=== PATIENT | male | born 1935 | race Caucasian/White ===

== ENCOUNTER 2021-04-07 12:03 | Outpatient (REF) | payer MEDICARE, SELFPAY ==
[2021-04-07 12:24] LABS: COVID-19 Test Negative (Negative)
== END 2021-04-07 12:04 | disposition home or self-care (01) ==
LOC: HO.HVNA 12:03
PROVIDERS: Visit Provider Internal Medicine
DX: Z20.822 Contact with and (suspected) exposure to COVID-19 (principal)
CPT/HCPCS: 36415; 87635

== ENCOUNTER 2021-05-18 14:00 | Emergency (ER) | payer MEDICARE, SELFPAY ==
--- NOTE | 2021-05-18 | ECG_ITS ---
Test Reason : chest pain Blood Pressure : / mmHG Vent. Rate : 059 BPM Atrial Rate : 059 BPM P-R Int : 188 ms QRS Dur : 084 ms QT Int : 414 ms P-R-T Axes : 063 046 072 degrees QTc Int : 409 ms Sinus bradycardia Otherwise normal ECG No previous ECGs available Referred By: Generic ED Physician Electronically Signed By:TOMMIE SAUNDERS
--- NOTE | ~2021-05-18 | CT_ITS ---
EXAMINATION: CT ABDOMEN AND PELVIS WITH CONTRAST CLINICAL INFORMATION: Trauma. COMPARISON: None TECHNIQUE: Multidetector volumetric images were obtained from the superior aspect of the liver through the pubic symphysis following administration 85 mL of Omnipaque 350 intravenous contrast. Sagittal and coronal reformatted images were obtained on the technologist's workstation. Oral contrast: No This CT examination was performed using dose optimization techniques as appropriate, variously including the following: *Automated exposure control *Adjustment of mA and/or kV according to patient size (this includes techniques or standardized protocols for targeted exams where dose is matched to indication/reason for exam; i.e. extremities or head) *Use of iterative reconstruction technique DLP: 612 mGy-cm FINDINGS: LUNG BASES: Evaluation of pulmonary nodules is limited due to motion. Asymmetric elevation of the right hemidiaphragm. There are bibasilar subsegmental atelectasis and/or peripheral parenchymal scarring. No focal consolidation or pleural effusion. The visualized cardiomediastinal silhouette is within normal limits aside from the presence of coronary calcifications. LIVER, GALLBLADDER, AND BILIARY TREE: The liver is normal in size, shape, and attenuation. No focal hepatic lesion. The gallbladder is unremarkable with no evidence of radiopaque gallstones, gallbladder wall thickening, or obvious pericholecystic inflammatory changes. The common bile duct is dilated up to approximately 1 cm without evidence of choledocholithiasis nor obstructive abnormalities. There is very mild intrahepatic biliary ductal dilatation. PANCREAS: Unremarkable. SPLEEN: Unremarkable. ADRENAL GLANDS: Unremarkable. KIDNEYS AND URETERS: There is a 0.2 cm calculus in the lower pole of the left kidney and a 0.2 cm calculus in the upper pole of the left kidney. No hydronephrosis or hydroureter. Bilateral extrarenal pelvises. There are a few too small to characterize cortical hypodensities bilaterally which statistically are likely to represent simple cysts and do not require further follow-up. There is mild bilateral perinephric fat stranding. BLADDER: Unremarkable. GASTROINTESTINAL TRACT: The stomach and the small bowel are nondilated. There are postsurgical changes at the cecal base likely from prior appendectomy. There is large amount stool burden throughout the colon without evidence of active pericolic inflammatory changes or bowel obstruction. There is questionable wall thickening of the rectum. ABDOMINAL WALL: There is an indeterminate well-defined hyperattenuating lesion in the left inguinal canal measuring up to 2.3 cm (3:84). No significant abdominal hernia. LYMPH NODES: No lymphadenopathy by size criteria. VASCULAR: Atherosclerotic disease. The abdominal aorta is of normal diameter. PELVIC VISCERA: Enlarged prostate with coarse calcifications. OSSEOUS STRUCTURES: No acute or aggressive osseous abnormalities. Significant thoracolumbar spondylosis. CT/CT abdomen pelvis w con IMPRESSION: No acute traumatic sequela. Nonobstructive left-sided calculi. Indeterminate CBD dilatation which could be related with patient's age. No definite obstructive abnormalities or choledocholithiasis are identified. If indicated, consider correlation with ERCP or MRCP. Questionable wall thickening of the rectum which could be related with under distention or mild proctocolitis in the appropriate clinical context. There is large amount of stool burden throughout the colon suggesting constipation. Indeterminate hyperattenuating lesion in the left inguinal canal which could represent loculated fluid within an inguinal hernia. Recommend clinical correlation and if needed further evaluation with a targeted ultrasound of this area. Prostatomegaly.
--- NOTE | ~2021-05-18 | CT_ITS ---
EXAMINATION: CT HEAD WITHOUT CONTRAST CLINICAL INFORMATION: Fall. COMPARISON: None TECHNIQUE: Contiguous axial imaging was performed from the skull base to vertex without intravenous administration of contrast. This CT examination was performed using dose optimization techniques as appropriate, variously including the following: *Automated exposure control *Adjustment of mA and/or kV according to patient size (this includes techniques or standardized protocols for targeted exams where dose is matched to indication/reason for exam; i.e. extremities or head) *Use of iterative reconstruction technique DLP: 760 mGy-cm FINDINGS: Large area of encephalomalacia/gliosis within the left middle cerebral artery vascular territory with associated parenchymal volume loss and ex vacuo dilatation of the left lateral ventricle. There is no evidence of acute intracranial hemorrhage or territorial infarction. No abnormal mass effect or midline shift is seen. Kilpatrick to white matter differentiation is otherwise well preserved. There is a background of moderate chronic microangiopathy and generalized cerebral volume loss. No extra-axial fluid collections are identified. The osseous structures and soft tissues are normal. The mastoid air cells and visualized portions of the paranasal sinuses are well aerated. CT/CT head/brain wo con IMPRESSION: Large chronic left MCA infarct. No acute edematous territorial infarction or intraparenchymal hemorrhage. Moderate chronic microangiopathy and generalized cerebral bolus.
--- NOTE | ~2021-05-18 | XR_ITS ---
EXAMINATION: XR RIBS, RIGHT CLINICAL INFORMATION: Pain status post fall COMPARISON: None TECHNIQUE: 4 views FINDINGS: Lungs are clear. No consolidation, pneumothorax, or pleural effusion. The cardiomediastinal silhouette and pulmonary vasculature are normal. Minor lobulation right hemidiaphragm laterally. No pneumothorax Osseous structures are unremarkable. Ribs are intact. No fractures are identified. XR/XR ribs RT min 3V w CXR1V IMPRESSION: No displaced rib fracture.
[2021-05-18 14:20] VITALS: BP 122/57; PULSE 57; RESP 17; O2SAT 97; BMI 23.5
[2021-05-18 18:14] LABS: Appearance Urine CLEAR; Color Urine YELLOW; Glucose Urine UA NEG (NEG); Leukocyte Esterase Urine NEG (NEG); Nitrite Urine NEG (NEG); Specific Gravity - Urine 1.025 (1.005-1.025); Urine Blood NEG (NEG); Urine Ketones NEG (NEG); Urine Protein NEG (NEG-TRACE)
[2021-05-18 19:47] VITALS: BP 118/82; PULSE 54; RESP 10; TEMP 36.6; O2SAT 99
--- NOTE | 2021-05-18 19:48 | ED_ITS ---
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 and lost balance and fell landed on his right side hitting his chest to the table no significant head injury no loss of consciousness fall was unwitnessed but patient remembers the fall denies any significant pain has superficial bruise on the right upper quadrant of abdomen no vomiting no change in behavior/ sensorium Related Data Allergies Allergy/AdvReac Type Severity Reaction Status Date / Time No Known Allergies Allergy Verified 05/18/21 14:19 Review of Systems Review of Systems: Yes all other systems are reviewed and are negative FORMERLY [facility] Past Medical History Medical History Anxiety Dementia Depression HTN (hypertension) Laryngeal cancer Pre-diabetes Prostate cancer Stroke Social History Social History Advance Directives: No Advance Directives Information Provided: No Physical Exam Vital Signs: Vital Signs: Last Vital Signs Temp 98.0 F 05/18/21 22:05 Pulse 58 05/18/21 22:05 Resp 11 L 05/18/21 22:05 BP 118/82 05/18/21 22:05 Pulse Ox 98 05/18/21 22:05 BMI result Body Mass Index 23.5 Appearance: Alert. Oriented X3. No acute distress. Slight forgetful Eyes: PERRLA, No Nystagmus no pallor or icterus ENT: Pharynx normal. Oral Mucosa moist Neck: Normal inspection. Neck supple no cervical tenderness CVS: Normal heart rate and rhythm. Pulses normal. Respiratory: No respiratory distress. Equal air entry bilateral, no wheezing/rales/rhonchi tenderness right lower ribs Abdomen: Soft and nontender. Bowel sounds are present, no mass palpable, no CVA tenderness small ecchymosis right upper quadrant abdomen Skin: Skin warm and dry. Normal skin color. Normal skin turgor. Extremities: No lower extremity edema. No calf tenderness Neuro: Oriented X 3. Residual right-sided weakness, No sensory deficit.No cerebellar signs , cranial nerves II-XII intact GI: Abdomen image: 1. Superficial ecchymosis with tenderness MDM - Fall MDM Narrative Medical decision making narrative: Patient is status post mechanical fall with stable labs and vitals head CT negative for any acute bleed abdomen CT is also negative for any acute liver injury or lower ribs fracture x-ray negative for rib fracture likely patient has contusion will discharge patient home Lab Data Attestation: I reviewed the patient's lab results. Result diagrams: 05/18/21 20:22 05/18/21 20: Labs: Lab Results 05/18/21 05/18/21 05/18/21 Range/Units 18:03 20: 20:22 WBC 8.1 (4.8-10.8) X10*3/uL RBC 4.69 (4.60-5.80) X10*6/uL Hgb 14.8 (14.0-18.0) g/dl Hct 44.4 (42.0-52.0) % MCV 94.7 (80.0-98.0) fL MCH 31.6 (27.0-33.0) pg MCHC 33.3 (31.0-36.0) g/dl RDW 12.7 (11.0-16.0) % Plt Count 187 (160-400) X10*3/uL MPV 10.2 (9.4-12.4) fL Immature Gran % (Auto) 0.4 (0.0-0.4) % Neut % (Auto) 67.3 (45-73) % Lymph % (Auto) 18.1 L (20-40) % [place] % (Auto) 12.1 H (2-11) % Eos % (Auto) 1.6 (0-4) % Baso % (Auto) 0.5 (0-2) % Lymph # (Auto) 1.5 (1.2-4.9) X10*3/uL Edmunds # (Auto) 1.0 (0.1-1.2) X10*3/uL Eos # (Auto) 0.1 (0.0-0.4) X10*3/uL Baso # (Auto) 0.0 (0.0-0.2) X10*3/uL Abs Immat Gran (auto) 0.03 (0.00-0.03) X10*3/uL Absolute Neuts (auto) 5.5 (2.0-8.3) x10*3/uL Absolute Nucleated RBC 0.000 (0.0-0.012) X10*3/uL Nucleated RBC % (auto) 0.0 (0.0-0.2) /100WBC PT (9.9-13.0) SEC INR (0.9-1.1) Sodium 138 (135-145) mmol/L Potassium 5.0 (3.3-5.1) mmol/L Chloride 101 (96-108) mmol/L Carbon Dioxide 30 H (22-29) mmol/L Anion Gap 12 (12-20) BUN 12 (9-16) mg/dL Creatinine 1.01 (0.5-1.4) mg/dL Estim Creat Clear Calc 50.9 Estimated GFR > 60 Random Glucose 96 (60-115) mg/dL Calcium 9.7 (8.4-10.2) mg/dL Urine Color YELLOW Urine Appearance CLEAR Urine pH 6.0 (5.0-8.0) Ur Specific [place] 1.025 (1.005-1.025) Urine Protein NEG (NEG-TRACE) MG/DL Urine Glucose (UA) NEG (NEG) MG/DL Urine Ketones NEG (NEG) MG/DL Urine Blood NEG (NEG) Urine Nitrite NEG (NEG) Ur Leukocyte Esterase NEG (NEG) 05/18/ Range/Units 20:22 WBC (4.8-10.8) X10*3/uL RBC (4.60-5.80) X10*6/uL Hgb (14.0-18.0) g/dl Hct (42.0-52.0) % MCV (80.0-98.0) fL MCH (27.0-33.0) pg MCHC (31.0-36.0) g/dl RDW (11.0-16.0) % Plt Count (160-400) X10*3/uL MPV (9.4-12.4) fL Immature Gran % (Auto) (0.0-0.4) % Neut % (Auto) (45-73) % Lymph % (Auto) (20-40) % Edmunds % (Auto) (2-11) % Eos % (Auto) (0-4) % Baso % (Auto) (0-2) % Lymph # (Auto) (1.2-4.9) X10*3/uL Edmunds # (Auto) (0.1-1.2) X10*3/uL Eos # (Auto) (0.0-0.4) X10*3/uL Baso # (Auto) (0.0-0.2) X10*3/uL Abs Immat Gran (auto) (0.00-0.03) X10*3/uL Absolute Neuts (auto) (2.0-8.3) x10*3/uL Absolute Nucleated RBC (0.0-0.012) X10*3/uL Nucleated RBC % (auto) (0.0-0.2) /100WBC PT 12.0 (9.9-13.0) SEC INR 1.1 (0.9-1.1) Sodium (135-145) mmol/L Potassium (3.3-5.1) mmol/L Chloride (96-108) mmol/L Carbon Dioxide (22-29) mmol/L Anion Gap (12-20) BUN (9-16) mg/dL Creatinine (0.5-1.4) mg/dL Estim Creat Clear Calc Estimated GFR Random Glucose (60-115) mg/dL Calcium (8.4-10.2) mg/dL Urine Color Urine Appearance Urine pH (5.0-8.0) Ur Specific [place] (1.005-1.025) Urine Protein (NEG-TRACE) MG/DL Urine Glucose (UA) (NEG) MG/DL Urine Ketones (NEG) MG/DL Urine Blood (NEG) Urine Nitrite (NEG) Ur Leukocyte Esterase (NEG) Discharge Plan Discharge Clinical Impression: Fall Qualifiers: Encounter type: initial encounter Qualified Code(s): W19.XXXA - Unspecified fall, initial encounter Contusion Qualifiers: Encounter type: initial encounter Contusion area: abdominal wall Qualified Code(s): S30.1XXA - Contusion of abdominal wall, initial encounter Patient Disposition: Home, Self-Care Instructions: Fall Prevention for Older Adults (ED), Contusion in Adults (ED) Additional Instructions: Local care as advised Tylenol for pain Interventions: ED Discharge Assessment Last Done: 05/18/21 22:47 Discharge Date/Time: 05/18/21 22:47 Print Language: Croatian
[2021-05-18 20:31] LABS: MANUAL DIFF FLAG NO
[2021-05-18 20:32] LABS: Basophils Percent Auto 0.5 % (0-2); Eosinophils Absolute Auto 0.1 X10*3/uL (0.0-0.4); Eosinophils Percent Auto 1.6 % (0-4); Hematocrit 44.4 % (42.0-52.0); Hemoglobin 14.8 g/dl (14.0-18.0); Imm Gran Abs Auto 0.03 X10*3/uL (0.00-0.03); Imm Gran Pct Auto 0.4 % (0.0-0.4); Lymphocytes Absolute Auto 1.5 X10*3/uL (1.2-4.9); Lymphocytes Percent Auto 18.1 % (20-40); Mean Corpuscular HGB Conc 33.3 g/dl (31.0-36.0); Mean Corpuscular Hemoglobin 31.6 pg (27.0-33.0); Mean Corpuscular Volume 94.7 fL (80.0-98.0); Mean Platelet Volume 10.2 fL (9.4-12.4); Monocytes Percent Auto 12.1 % (2-11); Neutrophils Absolute Auto 5.5 x10*3/uL (2.0-8.3); Neutrophils Percent Auto 67.3 % (45-73); Platelet Count 187 X10*3/uL (160-400); Red Blood Count 4.69 X10*6/uL (4.60-5.80); Red Cell Distribution Width 12.7 % (11.0-16.0); White Blood Count 8.1 X10*3/uL (4.8-10.8)
[2021-05-18 20:38] LABS: INTERNATIONAL NORM RATIO 1.1 (0.9-1.1)
[2021-05-18 20:48] LABS: Anion Gap 12 (12-20); Blood Urea Nitrogen 12 mg/dL (9-16); Calcium 9.7 mg/dL (8.4-10.2); Carbon Dioxide 30 mmol/L (22-29); Chloride 101 mmol/L (96-108); Creatinine Clr Calc Pharmacy 50.9; Estimated Glomerular Filt Rate > 60; Glucose Random 96 mg/dL (60-115); Sodium 138 mmol/L (135-145)
[2021-05-18] MEDS: iohexoL 350 MG/ML 100 ML INFUS..BTL 85 ML IV (21:25)
[2021-05-18 22:05] VITALS: BP 118/82; PULSE 58; RESP 11; TEMP 36.7; O2SAT 98
== END 2021-05-18 22:47 | disposition home or self-care (01) ==
PROVIDERS: Emergency Provider Internal Medicine; PCP Internal Medicine
DX: S30.1XXA Contusion of abdominal wall, initial encounter (principal); F03.90 Unspecified dementia, unspecified severity, without behavioral disturbance, psychotic disturbance, mood disturbance, and anxiety; M54.2 Cervicalgia; R07.81 Pleurodynia; R10.9 Unspecified abdominal pain; G44.309 Post-traumatic headache, unspecified, not intractable; W01.0XXA Fall on same level from slipping, tripping and stumbling without subsequent striking against object, initial encounter; Y93.9 Activity, unspecified; Y92.9 Unspecified place or not applicable; Y99.9 Unspecified external cause status; Z79.899 Other long term (current) drug therapy
CPT/HCPCS: 36415; 70450; 71101; 74177; 80048; 81003; 85025; 85610; 93005; 99284; Q9967